=== PATIENT | male | born 1995 | race Hispanic/Latino ===

== ENCOUNTER 2018-02-19 18:59 | Emergency (ER) | payer OTHER ==
[2018-02-19] MEDS: IBUPROFEN 600 MG TAB PO (20:55)
== END 2018-02-19 21:47 | disposition home or self-care (01) ==
LOC: M ED 18:59
DX: S30.0XXA Contusion of lower back and pelvis, initial encounter (principal); V86.64XA Passenger of military vehicle injured in nontraffic accident, initial encounter; Y92.138 Other place on military base as the place of occurrence of the external cause
CPT/HCPCS: 72110

== ENCOUNTER 2018-03-01 09:39 | Emergency (ER) | payer OTHER ==
[2018-03-01] MEDS: KETOROLAC TROMETHAMINE 10 MG TAB PO (10:35)
== END 2018-03-01 11:43 | disposition home or self-care (01) ==
LOC: M ED 09:39
DX: S70.01XA Contusion of right hip, initial encounter (principal); V57.5XXA Driver of pick-up truck or van injured in collision with fixed or stationary object in traffic accident, initial encounter; Y92.410 Unspecified street and highway as the place of occurrence of the external cause
CPT/HCPCS: 72110